=== PATIENT | male | born 1950 | race Caucasian/White ===

== ENCOUNTER 2016-09-22 23:23 | Emergency (ER) | payer MEDICARE, OTHER ==
[~2016-09-22] VITALS: Ht 172.7 cm; Wt 72.2 kg
[~2016-09-22 23:23] MED LIST: HYDR-902 PO; IBUP800T25 PO
[2016-09-22 23:36] VITALS: Ht 172.7 cm; Wt 72.2 kg
--- NOTE | 2016-09-23 00:08 | ERA ---
ER Documentation Chief Complaint Date/Time DATE: 09/23/16 TIME: 00:07 Chief Complaint HIGH BP, TOOK HCTZ 25MG X 3 TODAY, L ARM PAIN, DENIES CP, BRAY HPI The patient is a 66-year-old male, presenting to the ER because of high blood pressure. He took his blood pressure at [facility] pharmacy today, it was high, therefore he came to the ER. He has taken 3 hydrochlorothiazide 25 milligrams daily he complains of nausea but no vomiting. He denies headache, complains of minimal dizziness, denies facial pain, neck pain, chest pain, dyspnea, abdominal pain, vomiting, diarrhea, constipation. He does not smoke, drink socially Past medical history: Hypertension Past surgical history: Multiple right knee arthroscopic surgery ROS All systems reviewed and are negative except as per history of present illness. Medications Home Meds Active Scripts Amlodipine Besylate* (Norvasc*) 5 Mg Tablet, 5 MG PO DAILY for 30 Days, TAB Prov:FARZANA MENDOZA MD 09/23/16 Ibuprofen* (Motrin*) 800 Mg Tab, 800 MG PO Q6, #30 TAB Prov:ARTURO BOCANEGRA PA-C 06/01/16 Hydrocodone/Acetaminophen ([place] 10-325 Tablet) 1 Each Tablet, 1 TAB PO Q6H Y for PAIN, #12 TAB Prov:ARTURO BOCANEGRA PA-C 06/01/16 Allergies Allergies: Coded Allergies: No Known Allergy (Unverified , 09/16/14) PMhx/Soc History of Surgery: Yes (right knee) Anesthesia Reaction: No Hx Neurological Disorder: No Hx Respiratory Disorders: No Hx Cardiac Disorders: Yes (HTN) Hx Psychiatric Problems: No Hx Miscellaneous Medical Probl: No Hx Alcohol Use: No Hx Substance Use: No Hx Tobacco Use: No Physical Exam Vitals Vital Signs Date Time Temp Pulse Resp B/P Pulse Ox O2 Delivery O2 Flow Rate FiO2 09/23/16 02:00 98.6 54 20 164/99 100 Room Air 09/23/16 00:00 98.6 53 20 220/116 100 Room Air 09/22/16 23:36 98.6 52 20 196/106 97 Physical Exam Const: No acute distress. Head: Atraumatic. Eyes: Normal Conjunctiva. ENT: Normal External Ears, Nose and Mouth. Neck: Full range of motion. No meningismus. Resp: Clear to auscultation bilaterally. Cardio: Regular but bradycardic Abd: Soft, non distended, normal bowel sounds, non tender. Skin: No petechiae or rashes. Back: No midline or flank tenderness. Ext: No cyanosis, or edema. Neur: Awake and alert. No focal deficit Psych: Normal Mood and Affect. Result Diagram: 09/23/162909/23/160 Results 24 hrs Laboratory Tests Test 09/23/16 00:30 Activated Partial Thromboplast Time 31.1Sec Anion Gap 16 Basophils # 0.010^3/ul Basophils % 0.6% Blood Urea Nitrogen 14mg/dl Calcium Level 9.4mg/dl Carbon Dioxide Level 29mmol/L Chloride Level 98mmol/L Creatinine 0.78mg/dl Eosinophils # 0.210^3/ul Eosinophils % 3.1% Glucose Level 102mg/dl Hematocrit 40.6% Hemoglobin 14.1g/dl INR International Normalized Ratio 0.99 Lymphocytes # 2.410^3/ul Lymphocytes % 37.9% Mean Corpuscular Hemoglobin 29.8pg Mean Corpuscular Hemoglobin Concent 34.7g/dl Mean Corpuscular Volume 86.0fl Mean Platelet Volume 8.1fl Monocytes # 0.710^3/ul Monocytes % 11.2% Neutrophils # 3.010^3/ul Neutrophils % 47.2% Nucleated Red Blood Cells # 0.010^3/ul Nucleated Red Blood Cells % 0.0/100WBC Platelet Count 92205^3/UL Potassium Level 3.6mmol/L Prothrombin Time 13.1Sec Prothrombin Time Ratio 1.0 Red Blood Count 4.7210^6/ul Red Cell Distribution Width 12.5% Sodium Level 139mmol/L White Blood Count 6.510^3/ul Current Medications Medications (Trade) Dose Ordered Sig/Rashard Route PRN Reason Start Time Stop Time Status Last Admin Dose Admin Hydralazine HCl (Apresoline) 10 mg ONCE ONCE IV 09/23/16 00:30 09/23/16 00:31 DC 09/23/16 00:38 Procedures/MDM [place] [id number] Radiology Main Line: [phone] DIAGNOSTIC IMAGING REPORT Patient: HERNÁNDEZROSARIONATALYA : 1950 Age: 66 Sex: M [id number] [id number] DOS: 09/23/16 0019 Ordering MD: FARZANA MENDOZA MD Location: E/R Room/Bed: PROCEDURE: CT BRAIN WITHOUT CONTRAST CLINICAL INDICATION: 66-year-old male with headaches. TECHNIQUE: The study was performed utilizing a [employer] VCT 64-slice CT scanner. Direct axial sections were obtained from the foramen magnum to the vertex without the use of intravenous contrast material. Sagittal and coronal reformations were obtained. Automated exposure control and iterative reconstruction techniques were utilized for this examination. The images were viewed on a PACS workstation. CTD/vol = 43.6 mGy; Total Exam DLP = 720.2 mGy- cm. COMPARISON: None. FINDINGS: The ventricles have a normal size, shape and position. There is no evidence for mass effect or midline shift. There are no intracranial areas of abnormal attenuation. There is no evidence for acute intra or extra-axial blood. The bony calvarium is intact. The partially visualized paranasal sinuses and mastoid air cells are without significant abnormal soft tissue. IMPRESSION: Unremarkable noncontrast CT scan of the brain. .Kj Rees MD, MD Date Time Electronically viewed and signed by .Kj Rees MD, MD on 09/23/2016 01:15 .M/ CC: FARZANA MENDOZA MD MEDICAL MAKING DECISION: The patient is a 65-year-old male, presenting with acute accelerated hypertension. He was treated with hydralazine 10 mg IV with good blood pressure response. The differential diagnoses considered include but are not limited to subarachnoid hemorrhage, occult trauma, CVA, meningitis, encephalitis, hypertension, tension, migraine, cluster, narcotic withdrawal, cervical spine disease. Departure Diagnosis: Primary Impression: Accelerated hypertension Condition: Good Comments He was discharged with Norvasc 5 mg daily I discussed the findings with the patient. I advised the patient to follow-up with the primary physician in about 1-2 days, sooner if needed and return if any concern. FARZANA MENDOZA MD Sep 23, 2016 00:08
[2016-09-23] MEDS ORDERED: hydrALAzine 20 MG INJ IV ONE (00:30)
[2016-09-23 01:07] LABS: BASOPHILS % 0.6 % (0.0-2.0); EOSINOPHILS # 0.2 10^3/ul (0.0-0.5); EOSINOPHILS % 3.1 % (0.0-7.0); HEMATOCRIT 40.6 % (42.0-52.0); HEMOGLOBIN 14.1 g/dl (14.0-18.0); LYMPHOCYTES # 2.4 10^3/ul (0.8-2.9); LYMPHOCYTES % 37.9 % (15.0-51.0); MEAN CORPUSCULAR HEMOGLOBIN 29.8 pg (29.0-33.0); MEAN CORPUSCULAR HGB CONC 34.7 g/dl (32.0-37.0); MEAN PLATELET VOLUME 8.1 fl (7.4-10.4); MONOCYTE # 0.7 10^3/ul (0.3-0.9); MONOCYTES % 11.2 % (0.0-11.0); NEUTROPHILS % 47.2 % (39.0-77.0); PLATELET COUNT 294 10^3/UL (140-440); RED BLOOD COUNT 4.72 10^6/ul (4.70-6.10); RED CELL DISTRIBUTION WIDTH 12.5 % (11.5-14.5); UNCORRECTED WBC 6.5 10^3/ul (4.8-10.8); WHITE BLOOD COUNT 6.5 10^3/ul (4.8-10.8)
[2016-09-23 01:08] LABS: CONDITION 1; POTASSIUM 3.6 mmol/L (3.5-5.1)
[2016-09-23 01:09] LABS: INR 0.99; PROTIME 13.1 Sec (12.2-14.2)
[2016-09-23 01:10] LABS: PARTIAL THROMBOPLASTIN TIME 31.1 Sec (25.0-35.0)
[2016-09-23 01:11] LABS: CREATININE 0.78 mg/dl (0.61-1.24)
[2016-09-23 01:12] LABS: CALCIUM 9.4 mg/dl (8.4-10.2)
--- NOTE | 2016-09-23 01:16 | RADRPT ---
PROCEDURE: CT BRAIN WITHOUT CONTRAST CLINICAL INDICATION: 66-year-old male with headaches. TECHNIQUE: The study was performed utilizing a [employer] VCT 64-slice CT scanner. Direct axia l sections were obtained from the foramen magnum to the vertex without the use of intravenous contra st material. Sagittal and coronal reformations were obtained. Automated exposure control and iterat marlon reconstruction techniques were utilized for this examination. The images were viewed on a PACS workstation. CTD/vol = 43.6 mGy; Total Exam DLP = 720.2 mGy-cm. COMPARISON: None. FINDINGS: The ventricles have a normal size, shape and position. There is no evidence for mass effect or midl ine shift. There are no intracranial areas of abnormal attenuation. There is no evidence for acute intra or extra-axial blood. The bony calvarium is intact. The partially visualized paranasal sinuse s and mastoid air cells are without significant abnormal soft tissue. IMPRESSION: Unremarkable noncontrast CT scan of the brain. .Kj Rees MD, MD Date Time Electronically viewed and signed by .Kj Rees MD, MD on 09/23/2016 01:15 .M/
[2016-09-23] MEDS ORDERED: AMLO5TAB4 PO (01:49)
[2016-09-23 02:00] VITALS: BP 164/99; PULSE 54; RESP 20; TEMP 98.6
== END 2016-09-23 01:59 | disposition home or self-care (01) ==
LOC: E/R 23:23
DX: I10 Essential (primary) hypertension (principal); R51 Headache; R00.1 Bradycardia, unspecified
CPT/HCPCS: 36415; 70450; 80048; 85025; 85610; 85730; 96374; 99285; J0360

== ENCOUNTER 2019-03-10 23:24 | Emergency (ER) | payer OTHER ==
[~2019-03-10] VITALS: Ht 165.1 cm; Wt 72.2 kg
[~2019-03-10 23:24] MED LIST changes: +AMLO5TAB4 PO; +HYDR-3980 PO; -HYDR-902 PO; -IBUP800T25 PO; +IBUP800T48 PO
[2019-03-10 23:30] VITALS: Ht 165.1 cm; Wt 72.2 kg
--- NOTE | 2019-03-10 23:42 | ERD ---
ER Documentation Chief Complaint Chief Complaint STATES FISH BONE STUCK IN THROAT X1 HR HPI 68-year-old male presenting with complaints of a fishbone stuck in his throat for the past 1 hour. He feels a foreign body sensation in the left side of his throat. Associated mild pain. He is able to swallow but it does hurt. He denies any shortness of breath or any other associated symptoms. ROS All systems reviewed and are negative except as per history of present illness. Medications Home Meds Active Scripts Amlodipine Besylate* (Norvasc*) 5 Mg Tablet, 5 MG PO DAILY for 30 Days, TAB Prov:FARZANA MENDOZA MD 09/23/16 Discontinued Scripts Ibuprofen* (Motrin*) 800 Mg Tab, 800 MG PO Q6, #30 TAB Prov:ARTURO BOCANEGRA PA-C 06/01/16 Hydrocodone/Acetaminophen ([place] 10-325 Tablet) 1 Each Tablet, 1 TAB PO Q6H PRN for PAIN, #12 TAB Prov:ARTURO BOCANEGRA PA-C 06/01/16 Allergies Allergies: Coded Allergies: No Known Allergy (Unverified , 03/11/19) PMhx/Soc History of Surgery: Yes (right knee) Anesthesia Reaction: No Hx Neurological Disorder: No Hx Respiratory Disorders: No Hx Cardiac Disorders: Yes (HTN) Hx Psychiatric Problems: No Hx Miscellaneous Medical Probl: No Hx Alcohol Use: No Hx Substance Use: No Hx Tobacco Use: No FmHx Family History: No diabetes Physical Exam Vitals Vital Signs Date Temp Pulse Resp B/P (MAP) Pulse Ox O2 O2 Flow FiO2 Time Delivery Rate 03/11/19 50 18 160/91 98 Room Air 02:00 (114) 03/10/19 97.5 58 22 168/83 97 23:30 (111) Physical Exam Const: No acute distress Head: Atraumatic Eyes: Normal Conjunctiva ENT: Normal External Ears, Nose and Mouth. Posterior oropharynx without any foreign body visualized. No evidence of oral trauma. Able to handle secretions. No stridor or drooling. Normal phonation. Neck: Full range of motion. No meningismus. Normal to palpation without crepitus. Resp: Clear to auscultation bilaterally Cardio: Regular rate and rhythm, no murmurs Neur: Awake and alert Psych: Normal Mood and Affect Results 24 hrs Current Medications Medications Dose Sig/Rashard Start Time Status Last (Trade) Ordered Route PRN Stop Time Admin Dose Reason Admin Lidocaine 15 ml ONCE ONCE 03/11/19 DC 03/10/19 (Xylocaine PO 00:00 03/11/19 23:59 (Viscous)) 00:01 Procedures/MDM EMERGENT LABS AND DIAGNOSTIC STUDIES: Radiology Results as interpreted by Radiology below were reviewed by Henrik Ramsey MD: X-ray neck shows no evidence of foreign body on radiologist read CT neck shows evidence of fishbone lodged in the hypopharynx above the ep iglottis Initial Nursing notes reviewed. Previous Medical Records requested via the Electronic Health Record. EMERGENCY DEPARTMENT COURSE / MEDICAL DECISION MAKING: Patient is presenting with foreign body in his throat. CT does confirm evidence of a fishbone lodged in the hypopharynx. I consulted the ENT physician on-call, Dr. Antoine Quezada, who agreed to come see the patient. At this time patient is protecting his airway and is hemodynamically stable. At the end of my shift, patient awaiting ENT physicians consultation. Patient signed out to the oncoming ED physician. Departure Diagnosis: Primary Impression: Fishbone in throat Condition: NOHEMI Bonilla MD Mar 10, 2019 23:42
[2019-03-11] MEDS ORDERED: LIDOCAINE 2% VISC 15 ML CUP PO ONE
[2019-03-11 02:00] VITALS: BP 160/91; PULSE 50; RESP 18
--- NOTE | 2019-03-11 08:20 | HP ---
DATE OF ADMISSION: 03/10/2019 HISTORY OF PRESENT ILLNESS: Naga Pandya is a 68-year-old gentleman who earlier this evening swal lowed a fishbone. ENT was consulted to evaluate. A CAT scan was done, which according to the radiol ogist had showed fishbone "above the level of the epiglottis". PAST MEDICAL HISTORY: Negative for any heart, lung, kidney, thyroid or liver disease. PAST SURGICAL HISTORY: None. ALLERGIES: NO KNOWN DRUG ALLERGIES. MEDICATIONS: None. SOCIAL HISTORY: Negative for tobacco, alcohol or drug use. FAMILY HISTORY: Negative for any heart, lung, kidney, thyroid, liver disease. REVIEW OF SYSTEMS: A 12-point review of systems was otherwise noncontributory. PHYSICAL EXAMINATION: On examination today, looking into the oropharynx, I cannot easily see a forei gn body. Endoscopy was performed through the right nasal cavity. Nasopharynx is clear. The base of tongue is symmetric. Vallecula is open. A foreign body is seen impaled in to posterior hypopharyng eal wall. The larynx is without lesion. PLAN: At this point, topical Cetacaine spray was used to anesthetize the oropharynx, hypopharynx and larynx. Using a tongue depressor, I was able to traverse the tongue not so that I can see the lesio n. I was able to transorally grab the foreign body with a hemostat. The patient at that point has c omplete relief and comfort. I left the patient. Foreign body is removed. At this point, the patien t continues with the physician. Thank you very much for this ENT consult. Dictated By: FAWN BELLE MD DM/NTS Conf#: [id number] DID#: [id number] CC: NOHEMI ANTUNEZ MD; FAWN BELLE MD;*EndCC*
== END 2019-03-11 06:11 | disposition home or self-care (01) ==
LOC: E/R 23:24
DX: T17.298A Other foreign object in pharynx causing other injury, initial encounter (principal); I10 Essential (primary) hypertension; X58.XXXA Exposure to other specified factors, initial encounter; Y92.9 Unspecified place or not applicable
CPT/HCPCS: 70360; 70490